=== PATIENT | male | born 1985 | race Caucasian/White ===

== ENCOUNTER 2019-10-02 10:37 | Outpatient (CLI) | payer OTHER, SELFPAY ==
[2019-10-02 11:09] LABS: Basophils Percent Auto 0.6 % (0.2-1.2); Eosinophils Absolute Auto 0.3 K/mm3 (0-0.3); Eosinophils Percent Auto 3.5 % (0-4.4); Hematocrit 50.7 % (42.0-52.0); Hemoglobin 16.9 g/dL (14.0-18.0); Immature Granulocyte Absolute 0.02 K/mm3 (0.00-0.031); Immature Granulocyte Percent A 0.3 % (0-0.5); Lymphocytes Absolute Auto 2.72 K/mm3 (0.9-3.2); Lymphocytes Percent Auto 38.2 % (18.3-44.2); Mean Corpuscular HGB Conc 33.3 g/dl (32-36); Mean Corpuscular Hemoglobin 28.1 pg (26-34); Mean Corpuscular Volume 84.4 fl (80-100); Monocytes Absolute Auto 0.4 K/mm3 (0.1-0.6); Neutrophils Absolute Auto 3.7 K/mm3 (1.3-6.7); Neutrophils Percent Auto 51.4 % (45.5-73.1); Platelet Count Result 246 k/mm3 (150-375); Red Blood Count 6.01 M/mm3 (4.6-6.20); White Blood Count 7.1 K/mm3 (4.5-10.0)
[2019-10-02 11:37] LABS: Creatinine Urine 244.9 mg/dL
[2019-10-02 11:41] LABS: MALB Creatinine Ratio 3.4 mg/g (0-30); Microalbumin Urine Random 8.3 mg/L (0-16.7)
[2019-10-02 11:52] LABS: Alanine Aminotransferase 20 U/L (4-50); Albumin Level 4.4 g/dL (3.5-5.1); Alkaline Phosphatase 73 U/L (38-126); Aspartate Amino Transferase 23 U/L (17-59); Bilirubin,Total 0.7 mg/dL (0.2-1.3); Blood Urea Nitrogen 12 mg/dL (9-20); Calcium 9.2 mg/dL (8.4-10.2); Carbon Dioxide 27 mmol/L (22-30); Chloride 104 mmol/L (98-107); Cholesterol 240 mg/dL (0-200); Estimated Glomerular Filt Rate > 60; Glucose 89 mg/dL (75-110); HDL Direct 36 mg/dL; Potassium 4.1 mmol/L (3.4-5.0); Sodium 138 mmol/L (137-145); Triglycerides 151 mg/dL (<150); Vitamin D 25 Hydroxy 35.9 ng/mL
[2019-10-02 12:04] LABS: LDL Cholesterol Direct 162 mg/dL
[2019-10-02 12:24] LABS: Prostate Specific Antigen 0.4 ng/mL (< OR = 4.0); Total Triiodothyronine (T3) 1.05 NG/ML (0.97-1.69)
[2019-10-06 11:44] LABS: Testosterone Free 86.3 pg/mL (35.0-155.0); Testosterone Total 387 ng/dL (250-1100)
== END 2019-10-02 10:38 | disposition home or self-care (01) ==
PROVIDERS: PCP Family Medicine; Visit Provider Nurse Practitioner Family
DX: R80.9 Proteinuria, unspecified (principal); E55.9 Vitamin D deficiency, unspecified; N52.9 Male erectile dysfunction, unspecified; I10 Essential (primary) hypertension; E78.2 Mixed hyperlipidemia; E29.1 Testicular hypofunction; R53.83 Other fatigue
CPT/HCPCS: 36415; 80053; 80061; 82043; 82306; 84153; 84402; 84403; 84439; 84443; 84480; 85025; G0103

== ENCOUNTER 2020-10-09 22:05 | Emergency (ER) | payer BC, SELFPAY ==
--- NOTE | ~2020-10-09 | XR_ITS ---
XR chest 2V DATE: 10/09/2020 23:30 INDICATION: Anterior chest wall pain radiating to back for 3 days TECHNIQUE: PA and lateral views COMPARISON: None FINDINGS: Normal heart size. No hilar or mediastinal enlargement. No pulmonary infiltrate or consolidation, pleural effusion or pulmonary vascular congestion or pneumo thorax. IMPRESSION: No active cardiopulmonary disease Reviewed, dictated and finalized at location A.
[2020-10-09 22:32] VITALS: BP 120/65; PULSE 70; RESP 14; TEMP 37.1; O2SAT 100
[2020-10-09] MEDS: KETOROLAC (*BKC) 60 MG/2 ML VIAL IM (23:20)
--- NOTE | 2020-10-09 23:43 | ED.CHESTPAIN ---
HPI - Chest Pain General Chief Complaint: Back Pain/Injury Stated Complaint: rib pain after chiropractor. Time Seen by Provider: 10/09/20 22:52 Source: patient Mode of arrival: ambulatory Limitations: no limitations History of Present Illness HPI narrative: 35-year-old male Presents for evaluation of right anterior chest pain Patient states that he went with his significant other for a chiropractic adjustment several days ago and that part of the treatment included some kind of torquing of his chest and a firm thrust to the ribs He states that excruciating pain immediately ensued and that he stopped the treatment and left the appointment and he is still having episodes of very severe sharp lancinating pains in that area He has no respiratory symptoms such as a cough or a fever or shortness of breath, but deep breaths and certain movements and coughing cause a lot of discomfort Related Data Allergies Allergy/AdvReac Type Severity Reaction Status Date / Time No Known Allergies Allergy Verified 06/22/19 13:52 Review of Systems Review of Systems: All systems reviewed & are unremarkable except as noted in HPI and below Constitutional: Constitutional: Reports no additional constitutional complaints, Denies chills, Denies fever(s) and Denies headache(s) ENT: Denies headache(s) Cardiovascular: Cardiovascular: Reports chest pain and Denies dyspnea Respiratory: Respiratory: Denies cough and Denies dyspnea Gastrointestinal: Gastrointestinal: Denies abdominal pain Musculoskeletal: Musculoskeletal: Reports as per HPI, Denies deformity and Denies numbness Integumentary/Breasts: Skin/Breast: Denies wounds PMFSH Past Medical History Medical History (Updated 10/09/20 @ 23:52 by Keon Collins MD) Deafness in right ear Surgical History Surgical History H/O adenoidectomy History of placement of ear tubes rt Social History Social History Smoking status: Never smoker Gender identity (if verbalized by the patient): Male Exam Const: General: cooperative, no acute distress and alert Orientation/consciousness: patient oriented x3 (alert) HENMT: Head: normal to inspection, normocephalic and atraumatic Ears: external ears normal General nose exam: no epistaxis Eyes: Conjunctivae: conjunctivae normal EOM: EOMs intact bilaterally Neck: Neck: normal visual inspection, supple and no JVD Chest: Chest palpation & inspection: abnormal inspection of the chest and tenderness Other: Chest wall has probably the fifth or sixth ribs are both prominent but symmetric and not tender where they join the sternum However just below that on the right is moderately severe point tenderness in the area is also painful with compression of the thorax laterally Resp: Effort & Inspection: normal respiratory effort, not labored and not tachypneic Auscultation: clear to auscultation bilaterally, no rales, no rhonchi, no wheezes and other (BS =) Cardio: Rate: regular rate Rhythm: regular rhythm Skin: General skin exam: normal color and no rashes or lesions noted Neuro: General: patient oriented x3 (alert) Speech: normal speech Psych: Affect: normal affect Course Vital Signs Vital signs: Vital Signs Temperature 37.1 C 10/09/20 22:32 Pulse Rate 70 10/09/20 22:32 Respiratory Rate 14 10/09/20 22:32 Blood Pressure 120/65 10/09/20 22:32 Pulse Oximetry 100 10/09/20 22:32 Temperature 37.1 C 10/09/20 22:32 Pulse Rate 70 10/09/20 22:32 Respiratory Rate 14 10/09/20 22:32 Blood Pressure 120/65 10/09/20 22:32 Pulse Oximetry 100 10/09/20 22:32 MDM - Chest Pain Imaging Data Radiologist's impression: ITS Impressions Chest X-Ray 10/09/20 23:40 IMPRESSION: No active cardiopulmonary disease Discharge Plan Discharge Clinical Impression: Rib injury, Strain of chest
[2020-10-10 00:35] VITALS: BP 118/65; PULSE 74; RESP 16; O2SAT 99
== END 2020-10-10 00:35 | disposition home or self-care (01) ==
PROVIDERS: Emergency Provider Emergency Medicine; PCP Family Medicine
DX: S29.011A Strain of muscle and tendon of front wall of thorax, initial encounter (principal); X50.9XXA Other and unspecified overexertion or strenuous movements or postures, initial encounter
CPT/HCPCS: 71046; 96372; 99283; J1885